=== PATIENT | female | born 1945 | race Caucasian/White ===

== ENCOUNTER → 2023-11-18 | Outpatient (CLI) | payer MEDICARE, OTHER ==
[~2023-11-18] MED LIST: CYCL30DR OP; DENO60DI SQ; LEVO88TA7 PO
== END | disposition home or self-care (01) ==
LOC: SHCH 08:41
PROVIDERS: ATTEND Internal Medicine Cardiovascular Disease
DX: I77.811 Abdominal aortic ectasia (principal)
CPT/HCPCS: 93978